=== PATIENT | male | born 1985 | race Caucasian/White ===

== ENCOUNTER 2019-09-01 09:28 | Emergency (ER) | payer OTHER, SELFPAY ==
--- NOTE | ~2019-09-01 | XR_ITS ---
EXAMINATION: XR lumbar spine min 4V DATE: 09/01/2019 09:49 INDICATION: Low back pain TECHNIQUE: Anteroposterior, lateral, and bilateral oblique views of the lumbar spine, and cone-down l ateral view of the lumbosacral junction were obtained. COMPARISON: None. FINDINGS: There is no fracture, dislocation, or subluxation. The vertebral body heights, alignment, a nd intervertebral disc spaces are normal. The paravertebral soft tissues are unremarkable. IMPRESSION: 1. No acute osseous abnormality. Reviewed, dictated and finalized at location A. [facility]
[2019-09-01 09:27] VITALS: BP 138/84; PULSE 81; RESP 16; TEMP 36.7; O2SAT 98
--- NOTE | 2019-09-01 10:00 | ED.BACK ---
HPI - Back Pain/Injury General Chief Complaint: Back Pain/Injury Stated Complaint: back pain Time Seen by Provider: 09/01/19 09:29 Source: patient Mode of arrival: ambulatory Limitations: no limitations History of Present Illness HPI Narrative: Patient is a 34-year-old male who presents to emergency department for evaluation of back pain patient bent over and has sharp pain in the lower lumbar region worse with activity and movement presents per EMS was given Toradol in route patient had a similar occurrence a few weeks prior with similar story went to urgent care was given anti-inflammatory muscle relaxer with improvement denies other injury trauma radicular symptoms paresthesias or any bladder or bowel incontinence or fever or chills Related Data Allergies Allergy/AdvReac Type Severity Reaction Status Date / Time No Known Allergies Allergy Mild Verified 09/01/19 09:32 Review of Systems Review of Systems: All systems reviewed & are unremarkable except as noted in HPI and below PMFSH Surgical History Surgical History Hx of sinus surgery Exam Narrative: Exam Narrative: GENERAL: Well-appearing, well-nourished, and in no acute distress. HEAD: Normocephalic, atraumatic. EYES: PERRLA and EOMI. ENT: Nares clear, no rhinorrhea or epistaxis. Mucous membranes moist. CHEST: Clear to auscultation. No respiratory distress. No wheezes rales or rhonchi HEART: Regular rate and rhythm. No murmur heard. EXTREMITIES: Normal range of motion. No edema. Tenderness in the lower lumbar region SKIN: Warm, dry, no rash. NEURO: No focal deficits. Alert and oriented x3. Cranial nerves II through XII grossly intact. Normal speech and gait. Motor and sensory intact and symmetrical in the lower extremities PSYCH: Normal mood and affect. Course Course Emergency Course: Patient in the room aware of case findings treatment plan and diagnosis agreeing to follow-up Vital Signs Vital signs: Vital Signs Temperature 98.0 F 09/01/19 09:27 Pulse Rate 81 09/01/19 09:27 Respiratory Rate 16 09/01/19 09:27 Blood Pressure 138/84 09/01/19 09:27 Pulse Oximetry 98 09/01/19 09:27 Temperature 98.0 F 09/01/19 09:27 Pulse Rate 81 09/01/19 09:27 Respiratory Rate 16 02/25/20 09:27 Blood Pressure 138/84 09/01/19 09:27 Pulse Oximetry 98 09/01/19 09:27 MDM - Back Pain/Injury MDM Narrative Medical decision making narrative: Patients pain is positional in nature and localized to back without signs of cord compression or cauda equina based on neurological exam, skeletal exam and history. No fever or other significant factors to suggest osteomyelitis or spinal epidural abscess. No symptoms or signs to suggest pain is referred from abdominal or / cardiopulmonary sources. No pulsatile masses noted on exam. Patient ambulates with steady gait and is stable for outpatient management given case findings. Imaging Data Radiologist's impression: ITS Impressions Lumbar Spine X-Ray 09/01/19 09:51 IMPRESSION: 1. No acute osseous abnormality. Discharge Plan Discharge Clinical Impression: Strain of lumbar region Patient Disposition: Home, Self-Care Condition: Stable Instructions: Antibiotic Form, Acute Low Back Pain (ED) Additional Instructions: Medications as needed and prescribed. Limit lifting and bending. You may apply heat or cold to the area as needed. Follow up with your doctor for further care in the next 7 days. Contact your doctor or return to the emergency department if you develop problems with bladder or bowel function, weakness or loss of feeling in one or both of your legs, or any other serious concerns. Prescriptions: New naproxen 500 mg tablet 500 mg PO Q12H PRN (Reason: pain) Qty: 7 RF: 0 cyclobenzaprine 10 mg tablet 10 mg PO TID PRN (Reason: muscle spasm) Qty: 10 RF: 0 Follow-up/Referrals: UNKNOWN,
[2019-09-01] MEDS: MORPHINE SULFATE 4 MG/ML INJ IV PUSH (11:35)
[2019-09-01 12:17] VITALS: BP 134/74; PULSE 70; RESP 16; O2SAT 98
== END 2019-09-01 12:20 | disposition home or self-care (01) ==
PROVIDERS: Emergency Provider Emergency Medicine
DX: S39.012A Strain of muscle, fascia and tendon of lower back, initial encounter (principal); X58.XXXA Exposure to other specified factors, initial encounter
CPT/HCPCS: 72110; 96365; 96375; 99284; A9270; J0131; J1100; J2270; J3360

== ENCOUNTER 2019-11-01 08:26 | Emergency (ER) | payer OTHER, SELFPAY ==
[2019-11-01 08:43] VITALS: BP 122/76; PULSE 83; RESP 16; TEMP 36.6; O2SAT 99
--- NOTE | 2019-11-01 09:05 | ED.EAR ---
HPI - Ear Problem General Chief complaint: Ear Stated complaint: Ear Pain Time Seen by Provider: 11/01/19 08:50 Source: patient Mode of arrival: ambulatory Limitations: no limitations History of Present Illness HPI Narrative: Pee Soto is a 34 yo male with seasonal allergies who comes here with left-sided ear pain and pressure that started this morning. Had sneezing yesterday. Attributes some of his symptoms to his seasonal allergies that were triggered by yard work on Saturday. Ear pain is such that he his ear feels full, painful with jaw motion Related Data Home Medications Medication Instructions Recorded Confirmed No Home Medications 11/01/19 11/01/19 Allergies Allergy/AdvReac Type Severity Reaction Status Date / Time No Known Allergies Allergy Mild Verified 11/01/19 08:51 Review of Systems Review of Systems: Narrative: CONSTITUTIONAL: Denies fever, chills, sweats. EYES: Denies visual changes, redness, discharge. ENT: Denies rhinorrhea, congestion, sore throat, otalgia. CARDIOVASCULAR: Denies chest pain, palpitations, edema. RESPIRATORY: Denies dyspnea, wheezing, cough has left ear pain GASTROINTESTINAL: Denies abdominal pain, nausea, vomiting, diarrhea. GENITOURINARY: Denies dysuria, hematuria, abnormal discharge SKIN: Denies rash or itching. NEUROLOGIC: Denies numbness, or focal weakness. PSYCHIATRIC: Denies anxiety or depression. PMFSH Surgical History Surgical History Hx of sinus surgery Family History Family History Other No active medical problems Social History Social History Smoking status: Never smoker Alcohol intake: current Gender identity (if verbalized by the patient): Male Comments At time of signature, I agree with nursing past medical, surgical, social and family history. There is no relevant family history pertinent to the presenting complaint. Exam Narrative: Exam Narrative: GENERAL: This is a well-nourished, well-developed patient, in mild distress. HEAD: normocephalic, atraumatic. EYES: PERRL. Sclera clear/white. Vision is grossly intact. EARS: External ears normal, auditory canals clear on right some redness , left appears swollen, erythema and bulging TM, TMs without perforation. Hearing grossly intact. NOSE: External nose normal without nasal discharge, nares without redness, no rhinorrhea. THROAT: Mucous membranes moist, posterior pharynx NECK: Neck supple, non-tender CARDIOVASCULAR: Regular rate and rhythm without murmurs, gallops, or rubs. RESPIRATORY: Clear to auscultation. Breath sounds equal bilaterally. No wheezes, rales, or rhonchi. GASTROINTESTINAL: Abdomen soft, non-tender, SKIN: warm, intact with no suspicious lesions or rash, good texture and turgor. NEURO: awake, alert, and oriented to person, place and time. There were no obvious focal neurologic abnormalities. Steady gait EXTREMITIES: Normal range of motion. BACK: Nontender without deformity Course Course Emergency Course: Started on prednisone and antibiotic eardrops Discussed continued use of Claritin and supplemental use of Flonase Vital Signs Vital signs: Vital Signs Temperature 97.9 F 11/01/19 08:43 Pulse Rate 83 11/01/19 08:43 Respiratory Rate 16 11/01/19 08:43 Blood Pressure 122/76 11/01/19 08:43 Pulse Oximetry 99 11/01/19 08:43 Temperature 97.9 F 11/01/19 08:43 Pulse Rate 83 11/01/19 08:43 Respiratory Rate 16 11/01/19 08:43 Blood Pressure 122/76 11/01/19 08:43 Pulse Oximetry 99 11/01/19 08:43 Medical Decision Making Differential Diagnosis Differential Diagnosis: Otitis media versus otitis externa versus allergy related ear infection Vital Signs Vital Signs: Vital Signs Temperature 97.9 F 11/01/19 08:43 Pulse Rate 83 11/01/19 08:43 Respiratory Rate 16 11/01/19
--- NOTE | 2019-11-01 09:15 | ED.EAR ---
HPI - Ear Problem General Chief complaint: Ear Stated complaint: Ear Pain Time Seen by Provider: 11/01/19 08:50 Source: patient Mode of arrival: ambulatory Limitations: no limitations History of Present Illness HPI Narrative: Pee Soto is a 34 yo male with a PMH of seasonal allergies who has left ear pain and fullness that started this morning pain is rated at 6 out of 10 had sneezing yesterday seasonal allergies were increased after starting to do yard work on Saturday Related Data Home Medications Medication Instructions Recorded Confirmed No Home Medications 11/01/19 11/01/19 Allergies Allergy/AdvReac Type Severity Reaction Status Date / Time No Known Allergies Allergy Mild Verified 11/01/19 08:51 Review of Systems Review of Systems: Narrative: CONSTITUTIONAL: Denies fever, chills, sweats. EYES: Denies visual changes, redness, discharge. ENT: Denies rhinorrhea, congestion, sore throat, pepe L otalgia. CARDIOVASCULAR: Denies chest pain, palpitations, edema. RESPIRATORY: Denies dyspnea, wheezing, cough GASTROINTESTINAL: Denies abdominal pain, nausea, vomiting, diarrhea. GENITOURINARY: Denies dysuria, hematuria, abnormal discharge SKIN: Denies rash or itching. NEUROLOGIC: Denies numbness, or focal weakness. PSYCHIATRIC: Denies anxiety or depression. [facility] Family History Family History Other No active medical problems Social History Social History Smoking status: Never smoker Alcohol intake: current Gender identity (if verbalized by the patient): Male Exam Narrative: Exam Narrative: GENERAL: This is a well-nourished, well-developed patient, in mild distress. HEAD: normocephalic, atraumatic. EYES: PERRL. Sclera clear/white. Vision is grossly intact. EARS: External ears normal, right auditory canal reddened; left ear erythema with bulging TM ,without drainage, TMs without perforation. Hearing grossly intact. NOSE: External nose normal without nasal discharge, nares without redness, no rhinorrhea. THROAT: Mucous membranes moist, posterior pharynx NECK: Neck supple, non-tender CARDIOVASCULAR: Regular rate and rhythm without murmurs, gallops, or rubs. RESPIRATORY: Clear to auscultation. Breath sounds equal bilaterally. No wheezes, rales, or rhonchi. GASTROINTESTINAL: Abdomen soft, non-tender, SKIN: warm, intact with no suspicious lesions or rash, good texture and turgor. NEURO: awake, alert, and oriented to person, place and time. There were no obvious focal neurologic abnormalities. Steady gait EXTREMITIES: Normal range of motion. BACK: Nontender without deformity Course Course Emergency Course: Polymixin ear drops and prednisone taper continue use of claritin and supplemental flonase Vital Signs Vital signs: Vital Signs Temperature 97.9 F 11/01/19 08:43 Pulse Rate 83 11/01/19 08:43 Respiratory Rate 16 11/01/19 08:43 Blood Pressure 122/76 11/01/19 08:43 Pulse Oximetry 99 11/01/19 08:43 Temperature 97.9 F 11/01/19 08:43 Pulse Rate 83 11/01/19 08:43 Respiratory Rate 16 11/01/19 08:43 Blood Pressure 122/76 11/01/19 08:43 Pulse Oximetry 99 11/01/19 08:43 Medical Decision Making Differential Diagnosis Differential Diagnosis: otitis media vs otitis externa vs eustachian tube dysfunction Vital Signs Vital Signs: Vital Signs Temperature 97.9 F 11/01/19 08:43 Pulse Rate 83 11/01/19 08:43 Respiratory Rate 16 11/01/19 08:43 Blood Pressure 122/76 11/01/19 08:43 Pulse Oximetry 99 11/01/19 08:43 Temperature 97.9 F 11/01/19 08:43 Pulse Rate 83 11/01/19 08:43 Respiratory Rate 16 11/01/19 08:43 Blood Pressure 122/76 11/01/19 08:43 Pulse Oximetry 99 11/01/19 08:43 Discharge Plan Discharge Clinical Impression: Otitis media Qualifiers: Otitis media type: serous Chronicity: acute Laterality: left Recurren
== END 2019-11-01 09:15 | disposition home or self-care (01) ==
PROVIDERS: Emergency Provider Nurse Practitioner; PCP Family Medicine
DX: H65.02 Acute serous otitis media, left ear (principal)
CPT/HCPCS: 99213; G0463

== ENCOUNTER 2019-11-21 23:33 | Emergency (ER) | payer OTHER, SELFPAY ==
[2019-11-21 23:34] VITALS: BP 134/84; PULSE 82; RESP 18; TEMP 37; O2SAT 100
--- NOTE | 2019-11-21 23:59 | ECG_ITS ---
Measurements Intervals [place] Rate: 71 P: 30 [place]: 158 QRS: 5 QRSD: 92 T: 14 QT: 355 QTc: 386 Interpretive Statements SINUS RHYTHM BORDERLINE T WAVE ABNORMALITY- INFERIOR LEADS BORDERLINE ECG Electronically Signed On 11-22-2019 9:23:37 CDT by Ad Gallardo D.O.
[2019-11-22] MEDS: MECLIZINE HCL 25 MG TABLET PO (00:14)
[2019-11-22] MEDS: SODIUM CHLORIDE 0.9% IV 1,000 ML 999 ML IV CONT (00:15)
[2019-11-22 00:20] LABS: Basophils Absolute Auto 0.1 K/mm3 (0.0-0.1); Basophils Percent Auto 0.9 % (0.2-1.2); Eosinophils Absolute Auto 0.6 K/mm3 (0-0.3); Eosinophils Percent Auto 4.8 % (0-4.4); Hematocrit 40.4 % (42.0-52.0); Hemoglobin 13.9 g/dL (14.0-18.0); Immature Granulocyte Absolute 0.06 K/mm3 (0.00-0.031); Immature Granulocyte Percent A 0.5 % (0-0.5); Lymphocytes Absolute Auto 4.07 K/mm3 (0.9-3.2); Lymphocytes Percent Auto 35.8 % (18.3-44.2); Mean Corpuscular HGB Conc 34.4 g/dl (32-36); Mean Corpuscular Volume 87.1 fl (80-100); Mean Platelet Volume 9.5 fl (7.4-10.4); Monocytes Absolute Auto 1.2 K/mm3 (0.1-0.6); Monocytes Percent Auto 10.1 % (2.6-8.5); Neutrophils Absolute Auto 5.4 K/mm3 (1.3-6.7); Neutrophils Percent Auto 47.9 % (45.5-73.1); Platelet Count Result 327 k/mm3 (150-375); Red Blood Count 4.64 M/mm3 (4.6-6.20); Red Cell Distribution Width 12.8 % (11.5-14.5); White Blood Count 11.4 K/mm3 (4.5-10.0)
--- NOTE | 2019-11-22 00:24 | ED.WEAKNESS ---
HPI - Weakness General Chief complaint: Weakness Stated complaint: weakness/ chills/ nausea Time Seen by Provider: 11/21/19 23:34 History of Present Illness HPI Narrative: Patient is a 34-year-old male who presents the ER due to feelings of unexplained weakness and dizziness. Patient was watching a movie when he began to feel rotational dizziness with some nausea and of flushed feeling across his body. He developed dry mouth and some tingling in his fingers. Symptoms persisted for about 45 minutes. Did not seem to have any aggravating or alleviating factors associated with it. Started to feel better when EMS arrived. Denies any history of vertigo or any recent URI/sinus congestion. Patient does report he has had some mild back pain recently and had been moving furniture earlier in the day without issue. Related Data Home Medications Medication Instructions Recorded Confirmed No Home Medications 11/01/19 11/01/19 Allergies Allergy/AdvReac Type Severity Reaction Status Date / Time No Known Allergies Allergy Mild Verified 11/01/19 08:51 Review of Systems Review of Systems: All systems reviewed & are unremarkable except as noted in HPI and below Constitutional: Constitutional: Denies chills, Denies fever(s) and Reports weakness ENT: Reports dizziness, Denies nasal congestion and Denies sore throat Cardiovascular: Cardiovascular: Denies chest pain and Denies radiating jaw, neck or arm pain Respiratory: Respiratory: Denies cough, Denies dyspnea and Denies wheezing Gastrointestinal: Gastrointestinal: Denies abdominal pain, Reports nausea and Denies vomiting Neurologic: Reports dizziness, Denies syncope and Denies numbness Comments: Tingling in the hands Psychiatric: Psychiatric: Reports anxiety PMFSH Past Medical History Medical History (Updated 11/22/19 @ 02:38 by Olegario Fontaine MD) Healthy adult Surgical History Surgical History Hx of sinus surgery Social History Social History Smoking status: Never smoker Alcohol intake: current Gender identity (if verbalized by the patient): Male Exam Narrative: Exam Narrative: GENERAL: Well-appearing, well-nourished, and in no acute distress. HEAD: Normocephalic, atraumatic. EYES: PERRL and EOMI. ENT: TMs normal bilaterally. Mucous membranes moist. CHEST: Clear to auscultation. No respiratory distress. HEART: Regular rate and rhythm. Normal peripheral pulses. EXTREMITIES: Normal range of motion. No edema. SKIN: Warm, dry, no rash. NEURO: Alert and oriented x3. PSYCH: Normal mood and affect. Course Course Emergency Course: Resting comfortably. No additional symptoms. No complaints. Unremarkable work-up. Discharge home. Vital Signs Vital signs: Vital Signs Temperature 98.6 F 11/21/19 23:34 Pulse Rate 82 11/21/19 23:34 Respiratory Rate 18 11/21/19 23:34 Blood Pressure 134/84 11/21/19 23:34 Pulse Oximetry 100 11/21/19 23:34 Temperature 98.6 F 11/21/19 23:34 Pulse Rate 62 11/22/19 02:34 Respiratory Rate 18 11/22/19 02:34 Blood Pressure 115/83 11/22/19 02:34 Pulse Oximetry 100 11/22/19 02:34 MDM - Weakness Lab Data Result diagrams: 11/22/19 00:12 11/22/19 00:11 Labs: Lab Results 11/22/19 11/22/19 Range/Units 00:11 00:12 WBC 11.4 H (4.5-10.0) K/mm3 RBC 4.64 (4.6-6.20) M/mm3 Hgb 13.9 L (14.0-18.0) g/dL Hct 40.4 L (42.0-52.0) % MCV 87.1 (80-100) fl MCH 30.0 (26-34) pg MCHC 34.4 (32-36) g/dl RDW 12.8 (11.5-14.5) % Plt Count 327 (150-375) k/mm3 MPV 9.5 (7.4-10.4) fl Immature Gran % (Auto) 0.5 (0-0.5) % Neut % (Auto) 47.9 (45.5-73.1) % Lymph % (Auto) 35.8 (18.3-44.2) % Harper % (Auto) 10.1 H (2.6-8.5) % Eos % (Auto) 4.8 H (0-4.4) % Baso % (Auto) 0.9 (0.2-1.2) % Lymph # (Auto) 4.07 H (0.9-
[2019-11-22 00:31] LABS: Blood Urea Nitrogen 19 mg/dL (9-20); Calcium 9.4 mg/dL (8.4-10.2); Carbon Dioxide 27 mmol/L (22-30); Chloride 104 mmol/L (98-107); Estimated Glomerular Filt Rate > 60; Glucose 100 mg/dL (75-110); Potassium 3.3 mmol/L (3.4-5.0); Sodium 138 mmol/L (137-145)
[2019-11-22 02:34] VITALS: BP 115/83; PULSE 62; RESP 18; O2SAT 100
[2019-11-22 02:50] VITALS: BP 122/71; PULSE 66; RESP 16; O2SAT 100
== END 2019-11-22 02:50 | disposition home or self-care (01) ==
PROVIDERS: Emergency Provider Emergency Medicine; PCP Family Medicine
DX: F41.9 Anxiety disorder, unspecified (principal); R53.1 Weakness; R94.31 Abnormal electrocardiogram [ECG] [EKG]
CPT/HCPCS: 36415; 80048; 85025; 93005; 96360; 99283; A9270; J7030

== ENCOUNTER 2020-11-29 14:37 | Outpatient (CLI) | payer OTHER, SELFPAY ==
--- NOTE | 2020-11-29 | ECHO_ITS ---
Patient Info Name: Pee Soto Age: 35 years : 1985 Gender: Male Ht: 70 in Wt: 220 lbs BSA: 2.25 m2 HR: 78 bpm BP: 133 / 79 mmHg Heart Rhythm: Sinus Rhythm Exam Date: 11/29/2020 3:04 PM Exam Location: [facility] Patient Status: Outpatient Admit Date: 11/29/2020 Staff Ordering Physician: Aleksander, Khari Leija MD Coat Checker: Talia Adonro [facility] Attending Provider: Aleksander, Khari Leija MD Referring Physician: Les MOSES; Exam Type: CA echo doppler color flow Study Info Complete two-dimensional, color flow and Doppler transthoracic echocardiogram is performed. Summary 1. Complete two-dimensional, color flow and Doppler transthoracic echocardiogram is performed. 2. Left ventricular chamber size, systolic and diastolic function are normal with no regional wall motion abnormalities with an estimated ejection fraction of >70%. Borderline LVH. 3. Borderline left atrial enlargement. 4. No significant valve disease. 5. Normal sinus rhythm. Left Ventricle Left ventricular chamber size, systolic and diastolic function are normal with no regional wall motion abnormalities with an estimated ejection fraction of >70%. Borderline LVH. Left Ventricular Outflow Tract Name Value Normal LVOT 2D LVOT Diameter 2.3 cm LVOT Doppler LVOT Peak Velocity 92 cm/s LVOT Peak Gradient 3 mmHg LVOT Mean Gradient 1 mmHg LVOT VTI 20 cm LVOT VTI/AV VTI Ratio 0.8 LVOT Stroke Volume 81 ml LVOT CO 5.3 l/min LVOT CI 2.4 l/min/m2 Pulmonic Valve Name Value Normal PV Doppler PV Peak Velocity 93 cm/s PV Peak Gradient 3 mmHg Mitral Valve Name Value Normal MV Doppler MV Decel White 474 cm/s2 MV PHT 52 ms MV Area (PHT) 4.3 cm2 4.0-5.0 MV Diastolic Function MV E Peak Velocity 84 cm/s MV A Peak Velocity 58 cm/s MV E/A 1.5 MV Decel Time 178 ms MV A Wave Duration 126 ms MV Annular TDI MV Septal e' Velocity 9.6 cm/s >=8.0 MV E/e' (Septal) 8.8
== END 2020-11-29 14:38 | disposition home or self-care (01) ==
LOC: ANHCARD 14:40
DX: R00.2 Palpitations (principal); R07.89 Other chest pain
CPT/HCPCS: 93306

== ENCOUNTER 2021-06-27 18:40 | Emergency (ER) | payer OTHER, SELFPAY ==
[2021-06-27 19:04] VITALS: BP 122/60; PULSE 112; RESP 20; TEMP 36.9; O2SAT 100
--- NOTE | 2021-06-27 19:35 | ED.URI ---
HPI - URI/Sore Throat General Chief Complaint: Upper Respiratory Infection Stated Complaint: sorethroat,bodyaches,fever Source: patient and RN notes reviewed Mode of arrival: ambulatory History of Present Illness HPI Narrative: This is a 36-year-old male who presented to urgent care with complaints of sore throat, headache, chills, body aches, temperature of 102.7 that he has had since Saturday. Patient notes that he took home Covid test which was negative and his influenza test was positive for negative. Will order PCR Covid per patient. Only thing patient took at home was ibuprofen. The patient denies SOB, CP, palpitation, extremity numbness, lightheadedness, dizziness, constipation, or Diarrhea. Related Data Home Medications Medication Instructions Recorded Confirmed No Home Medications 11/01/19 06/27/21 Allergies Allergy/AdvReac Type Severity Reaction Status Date / Time No Known Allergies Allergy Mild Verified 06/27/21 19:06 Review of Systems Review of Systems: A 14 organ system Review of Systems was performed and pertinent positives included in the HPI, otherwise remaining ROS is negative. [facility] Past Medical History Medical History Healthy adult Surgical History Surgical History Hx of sinus surgery Family History Family History (Updated 06/27/21 @ 19:36 by MARY Fitch) Other Family history non-contributory No active medical problems Social History Social History Smoking status: Never smoker Alcohol intake: current Gender identity (if verbalized by the patient): Male Exam Narrative: GENERAL: This is a well-nourished, well-developed patient, in no apparent distress. HEAD: normocephalic, atraumatic. EYES: PERRL. Sclera clear/white. Vision is grossly intact. EARS: External ears normal, auditory canals clear and without drainage, TMs normal without perforation. Hearing grossly intact. NOSE: External nose normal with no obvious nasal discharge, nares without redness, no rhinorrhea. THROAT: Mucous membranes moist, posterior pharynx clear. NECK: Neck supple, non-tender without lymphadenopathy, masses or thyromegaly. CARDIOVASCULAR: Regular rate and rhythm without murmurs, gallops, or rubs. RESPIRATORY: Clear to auscultation. Breath sounds equal bilaterally. No wheezes, rales, or rhonchi. GASTROINTESTINAL: Abdomen soft, non-tender, nondistended. Bowel sounds are active. No hepato-splenomegaly, or palpable masses. No guarding. SKIN: warm, intact with no suspicious lesions or rash, good texture and turgor. NEURO: awake, alert, and oriented to person, place and time. There were no obvious focal neurologic abnormalities. Steady gait EXTREMITIES: Normal range of motion. No edema. No calf tenderness. Negative Homans sign bilaterally. BACK: Nontender without deformity or crepitance. No flank tenderness. Course Course Emergency Course: Patient will complete a CRP Covid Vital Signs Vital signs: Vital Signs Temperature 98.4 F 06/27/21 19:04 Pulse Rate 112 H 06/27/21 19:04 Respiratory Rate 20 06/27/21 19:04 Blood Pressure 122/60 06/27/21 19:04 Pulse Oximetry 100 06/27/21 19:04 Temperature 98.4 F 06/27/21 19:04 Pulse Rate 112 H 06/27/21 19:04 Respiratory Rate 20 06/27/21 19:04 Blood Pressure 122/60 06/27/21 19:04 Pulse Oximetry 100 06/27/21 19:04 MDM - URI/Sore Throat Differential Diagnosis Differential diagnosis: Likely upper respiratory infection, viral infection, influenza and other (covid) Lab Data Labs: Influenza A Screen Negative Reference Range: Negative Influenza B Screen Negative Reference Range: Negative Discharge Plan Discharge Clinical Im
== END 2021-06-27 19:33 | disposition home or self-care (01) ==
PROVIDERS: Emergency Provider Nurse Practitioner
DX: B34.9 Viral infection, unspecified (principal); Z20.822 Contact with and (suspected) exposure to COVID-19
CPT/HCPCS: 87804; 99213; G0463

== ENCOUNTER → 2021-06-28 08:53 | Outpatient (CLI) | payer OTHER, SELFPAY ==
[2021-06-28 19:39] LABS: SARS-CoV-2 RNA PCR Positive
== END ==
PROVIDERS: PCP Nurse Practitioner; Visit Provider Nurse Practitioner
DX: U07.1 COVID-19 (principal)
CPT/HCPCS: C9803; U0003; U0005